=== PATIENT | male | born 1950 | race Caucasian/White ===

== ENCOUNTER 2016-11-21 09:27 | Outpatient (CLI) | payer MEDICARE, OTHER | END 2016-11-21 09:28 | disposition home or self-care (01) | DX: E78.2 Mixed hyperlipidemia (principal); D68.52 Prothrombin gene mutation; E11.65 Type 2 diabetes mellitus with hyperglycemia; Z79.899 Other long term (current) drug therapy; E03.9 Hypothyroidism, unspecified; Z79.01 Long term (current) use of anticoagulants ==

== ENCOUNTER 2016-12-11 15:20 | Outpatient (CLI) | payer MEDICARE, OTHER | END 2016-12-11 15:21 | disposition home or self-care (01) | LOC: LAB 15:20 | PROVIDERS: ATTEND Internal Medicine | DX: Z79.01 Long term (current) use of anticoagulants (principal); D68.52 Prothrombin gene mutation | CPT/HCPCS: 85610 ==

== ENCOUNTER 2017-01-18 09:57 | Outpatient (CLI) | payer MEDICARE, OTHER | END 2017-01-18 09:58 | disposition home or self-care (01) | LOC: LAB 09:57 | PROVIDERS: ATTEND Internal Medicine | DX: Z79.01 Long term (current) use of anticoagulants (principal) | CPT/HCPCS: 85610 ==

== ENCOUNTER 2017-01-30 15:14 | Outpatient (CLI) | payer MEDICARE, OTHER | END 2017-01-30 15:15 | disposition home or self-care (01) | DX: R05 Cough (principal) ==

== ENCOUNTER 2017-01-31 09:00 | Outpatient (CLI) | payer MEDICARE, OTHER ==
--- NOTE | 2017-01-31 10:05 | XRAY Report ---
TWO-VIEW CHEST: 01/31/2017 CLINICAL INDICATION: Persistent cough, decreased breath sounds. FINDINGS: Frontal and lateral views of the chest demonstrate a normal cardiac silhouette. A left myers bclavian two-lead pacemaker is in place. The lungs are clear. No effusion or pneumothorax is presen t. IMPRESSION: NORMAL CHEST. JOB #: [id number] EXT JOB #:[id number]
== END 2017-01-31 09:01 | disposition home or self-care (01) ==
LOC: DI 09:00
PROVIDERS: ATTEND Nurse Practitioner Primary Care
DX: R05 Cough (principal); R07.82 Intercostal pain; R53.83 Other fatigue; R06.89 Other abnormalities of breathing
CPT/HCPCS: 71020

== ENCOUNTER 2017-02-21 15:33 | Outpatient (CLI) | payer MEDICARE, OTHER | END 2017-02-21 15:34 | disposition home or self-care (01) | LOC: LAB 15:33 | PROVIDERS: ATTEND Internal Medicine | DX: Z53.9 Procedure and treatment not carried out, unspecified reason (principal) | CPT/HCPCS: 85610 ==

== ENCOUNTER 2017-03-02 14:48 | Outpatient (CLI) | payer MEDICARE, OTHER | END 2017-03-02 14:49 | disposition home or self-care (01) | LOC: LAB 14:48 | PROVIDERS: ATTEND Internal Medicine | DX: Z79.01 Long term (current) use of anticoagulants (principal) | CPT/HCPCS: 85610 ==

== ENCOUNTER 2017-06-06 15:04 | Outpatient (CLI) | payer MEDICARE, OTHER | END 2017-06-06 15:05 | disposition home or self-care (01) | LOC: LAB 15:04 | PROVIDERS: ATTEND Internal Medicine | DX: Z79.01 Long term (current) use of anticoagulants (principal); D68.52 Prothrombin gene mutation | CPT/HCPCS: 85610 ==

== ENCOUNTER 2017-06-22 11:19 | Outpatient (CLI) | payer MEDICARE, OTHER ==
[2017-06-22 12:15] LABS: INR 4.8 (0.8-1.2)
== END 2017-06-22 11:20 | disposition home or self-care (01) ==
LOC: LAB 11:19
PROVIDERS: ATTEND Internal Medicine
DX: Z79.01 Long term (current) use of anticoagulants (principal); D68.52 Prothrombin gene mutation
CPT/HCPCS: 36415; 85610

== ENCOUNTER 2017-07-20 11:39 | Outpatient (CLI) | payer MEDICARE, OTHER | END 2017-07-20 11:40 | disposition home or self-care (01) | LOC: LAB 11:39 | PROVIDERS: ATTEND Internal Medicine | DX: Z79.01 Long term (current) use of anticoagulants (principal); D68.52 Prothrombin gene mutation | CPT/HCPCS: 85610 ==

== ENCOUNTER 2017-08-23 10:22 | Outpatient (CLI) | payer MEDICARE, OTHER | END 2017-08-23 10:23 | disposition home or self-care (01) | LOC: LAB 10:22 | PROVIDERS: ATTEND Internal Medicine | DX: Z79.01 Long term (current) use of anticoagulants (principal); D68.52 Prothrombin gene mutation | CPT/HCPCS: 85610 ==

== ENCOUNTER 2017-09-11 08:49 | Outpatient (CLI) | payer MEDICARE, OTHER | END 2017-09-11 08:50 | disposition home or self-care (01) | LOC: LAB 08:49 | PROVIDERS: ATTEND Internal Medicine | DX: D68.52 Prothrombin gene mutation (principal); Z79.01 Long term (current) use of anticoagulants | CPT/HCPCS: 85610 ==

== ENCOUNTER 2017-10-04 13:49 | Outpatient (CLI) | payer MEDICARE, OTHER | END 2017-10-04 13:50 | disposition home or self-care (01) | LOC: LAB 13:49 | PROVIDERS: ATTEND Internal Medicine | DX: Z79.01 Long term (current) use of anticoagulants (principal); D68.52 Prothrombin gene mutation | CPT/HCPCS: 85610 ==

== ENCOUNTER 2017-11-01 15:10 | Outpatient (CLI) | payer MEDICARE, OTHER | END 2017-11-01 15:11 | disposition home or self-care (01) | LOC: LAB 15:10 | PROVIDERS: ATTEND Internal Medicine | DX: Z79.01 Long term (current) use of anticoagulants (principal); D68.52 Prothrombin gene mutation | CPT/HCPCS: 85610 ==

== ENCOUNTER 2017-12-07 10:03 | Outpatient (CLI) | payer MEDICARE, OTHER | END 2017-12-07 10:04 | disposition home or self-care (01) | LOC: LAB 10:03 | PROVIDERS: ATTEND Internal Medicine | DX: Z79.01 Long term (current) use of anticoagulants (principal); D68.52 Prothrombin gene mutation | CPT/HCPCS: 85610 ==

== ENCOUNTER 2017-12-21 08:37 | Outpatient (CLI) | payer MEDICARE, OTHER | END 2017-12-21 08:38 | disposition home or self-care (01) | LOC: LAB 08:37 | PROVIDERS: ATTEND Internal Medicine | DX: D68.52 Prothrombin gene mutation (principal); Z79.01 Long term (current) use of anticoagulants | CPT/HCPCS: 85610 ==

== ENCOUNTER 2018-01-25 12:13 | Outpatient (CLI) | payer MEDICARE, OTHER | END 2018-01-25 12:14 | disposition home or self-care (01) | LOC: LAB 12:13 | PROVIDERS: ATTEND Internal Medicine | DX: Z79.01 Long term (current) use of anticoagulants (principal); D68.52 Prothrombin gene mutation | CPT/HCPCS: 85610 ==

== ENCOUNTER 2018-03-04 11:08 | Outpatient (CLI) | payer MEDICARE, OTHER | END 2018-03-04 11:09 | disposition home or self-care (01) | LOC: LAB 11:08 | PROVIDERS: ATTEND Internal Medicine | DX: Z79.01 Long term (current) use of anticoagulants (principal); D68.52 Prothrombin gene mutation | CPT/HCPCS: 85610 ==

== ENCOUNTER 2018-03-15 10:49 | Outpatient (CLI) | payer MEDICARE, OTHER | END 2018-03-15 10:50 | disposition home or self-care (01) | LOC: LAB 10:49 | PROVIDERS: ATTEND Internal Medicine | DX: Z79.01 Long term (current) use of anticoagulants (principal); D68.52 Prothrombin gene mutation | CPT/HCPCS: 85610 ==

== ENCOUNTER 2018-03-27 13:09 | Outpatient (CLI) | payer MEDICARE, OTHER ==
[2018-03-27 15:15] LABS: BASOPHILS # (AUTO) 0.1 10^3/uL (0.0-0.1); EOSINOPHILS # (AUTO) 0.3 10^3/uL (0.0-0.7); EOSINOPHILS % (AUTO) 4.3 %; HGB - HEMOGLOBIN 13.8 g/dL (14.0-18.0); LYMPHOCYTES # (AUTO) 1.6 10^3/uL (1.5-3.5); LYMPHOCYTES % (AUTO) 19.9 %; MEAN CORPUSCULAR HEMOGLOBIN 29.9 pg (27.0-31.0); MEAN CORPUSCULAR HGB CONC 34.2 g/dL (32.0-36.0); MEAN CORPUSCULAR VOLUME 87.5 fL (80.0-94.0); MEAN PLATELET VOLUME 7.5 fL (7.4-11.4); MONOCYTES # (AUTO) 0.7 10^3/uL (0.0-1.0); MONOCYTES % (AUTO) 9.2 %; NEUTROPHILS # (AUTO) 5.3 10^3/uL (1.5-6.6); NEUTROPHILS % (AUTO) 65.6 %; PLT - PLATELET COUNT 200 10^3/uL (130-450); RED BLOOD COUNT 4.62 10^6/uL (4.70-6.10)
[2018-03-27 15:23] LABS: ALBUMIN 4.4 g/dL (3.2-5.5); ALBUMIN/GLOBULIN RATIO 1.5 (1.0-2.2); ALKALINE PHOSPHATASE 66 IU/L (42-121); ALT ALANINE AMINOTRANSFERASE 18 IU/L (10-60); AST ASPARTATE AMINOTRANSFERASE 20 IU/L (10-42); BILIRUBIN,TOTAL 0.5 mg/dL (0.2-1.0); BUN - BLOOD UREA NITROGEN 12 mg/dL (6-20); CARBON DIOXIDE - CO2 25 mmol/L (21-32); CHLORIDE 103 mmol/L (101-111); CHOL/HDL RATIO 2.4 (<5.0); CHOLESTEROL 134 mg/dL; CREATININE 1.3 mg/dL (0.6-1.2); GFR - MDRD 55 (>89); GLUCOSE 109 mg/dL (70-100); HDL CHOLESTEROL 55 mg/dL; INR 2.1 (0.8-1.2); LDL CHOLESTEROL,CALCULATED 42 mg/dL; LDL/HDL RATIO 0.8 (<3.6); PT - PROTHROMBIN TIME 23.2 secs (9.9-12.6); SODIUM 135 mmol/L (135-145); TOTAL PROTEIN 7.4 g/dL (6.7-8.2); VLDL CHOLESTEROL 37 mg/dL
[2018-03-27 15:24] LABS: HB2 TOTAL 14.9 g/dL; HEMOGLOBIN A1C 0.59 g/dL; HEMOGLOBIN A1C % 5.8 % (4.6-6.2)
--- NOTE | 2018-03-28 12:00 | XRAY Report ---
Reason: HEAD NECK CANCER Procedure Date: 03/27/2018 Accession Number: [id number] / [id number] Procedure: XR - Chest 2 View X-Ray CPT Code: 45481 FULL RESULT: EXAM: CHEST RADIOGRAPHY EXAM DATE: 03/27/2018 03:09 PM. CLINICAL HISTORY: History of throat cancer. Long exposure to secondhand smoke. Coughing. COMPARISON: CHEST 2 VIEW PA/LAT 01/31/2017. TECHNIQUE: 2 views. FINDINGS: Lungs/Pleura: No focal opacities evident. No pleural effusion. No pneumothorax. Normal volumes. Mediastinum: Heart and mediastinal contours are unremarkable. Other: There is a left subclavian pacemaker device with the tips at the right atrium and right ventricle apex. There is moderate degenerative change about the shoulder bilaterally. Mild multilevel degenerative change within the spine. IMPRESSION: Stable appearance of the chest without acute cardiopulmonary abnormality. RADIA
== END 2018-03-27 13:10 | disposition home or self-care (01) ==
LOC: LAB 13:09 → DI 13:10
PROVIDERS: ATTEND Internal Medicine
DX: C76.0 Malignant neoplasm of head, face and neck (principal); I25.10 Atherosclerotic heart disease of native coronary artery without angina pectoris; Z79.01 Long term (current) use of anticoagulants; E03.9 Hypothyroidism, unspecified; D68.51 Activated protein C resistance; E11.9 Type 2 diabetes mellitus without complications; Z12.5 Encounter for screening for malignant neoplasm of prostate; E78.5 Hyperlipidemia, unspecified; I10 Essential (primary) hypertension; D68.2 Hereditary deficiency of other clotting factors; Z00.8 Encounter for other general examination
CPT/HCPCS: 36415; 71046; 80053; 80061; 83036; 84443; 85025; 85610; G0103; 83721; 84153

== ENCOUNTER 2018-04-11 09:37 | Outpatient (CLI) | payer MEDICARE, OTHER | END 2018-04-11 09:38 | disposition home or self-care (01) | LOC: LAB 09:37 | PROVIDERS: ATTEND Internal Medicine | DX: Z79.01 Long term (current) use of anticoagulants (principal); D68.52 Prothrombin gene mutation | CPT/HCPCS: 85610 ==

== ENCOUNTER 2018-05-09 09:28 | Outpatient (CLI) | payer MEDICARE, OTHER | END 2018-05-09 09:29 | disposition home or self-care (01) | LOC: LAB 09:28 | PROVIDERS: ATTEND Internal Medicine | DX: Z79.01 Long term (current) use of anticoagulants (principal); D68.52 Prothrombin gene mutation | CPT/HCPCS: 85610 ==

== ENCOUNTER 2018-05-22 15:06 | Outpatient (CLI) | payer MEDICARE, OTHER ==
--- NOTE | 2018-05-23 09:18 | Ultrasound Report ---
Reason: ATHEROSCLEROTIC CARDIOVASCULAR DISEASE Procedure Date: 05/22/2018 Accession Number: [id number] / [id number] Procedure: US - Carotid Doppler Complete CPT Code: FULL RESULT: EXAM: BILATERAL CAROTID AND VERTEBRAL ARTERY DUPLEX DOPPLER ULTRASOUND: EXAM DATE: 05/22/2018 04:34 PM CLINICAL HISTORY: Atherosclerotic cardiovascular disease. History of bilateral carotid artery stents. COMPARISON: None. TECHNIQUE: Grayscale imaging, color Doppler, and duplex spectral Doppler were used to evaluate the carotid and vertebral arteries bilaterally. Static images were obtained. FINDINGS: Vascular stent is seen in the left carotid bulb region. Stent on the right side is not as well delineated separately from the underlying mild to moderate atherosclerotic plaque. Overall, there is no significant elevation of the velocities or ratios to suggest significant stenosis. The left external carotid artery is noted to be occluded. Normal antegrade flow is present in bilateral vertebral arteries. VELOCITIES (cm/sec): VELOCITIES: Right CCA mid: PSV 78.42 cm/sec CCA dist: PSV 75.62 cm/sec ICA prox: PSV 95.39 cm/sec, EDV 31.20 cm/sec ICA mid: PSV 68.99 cm/sec, EDV 31.20 cm/sec ICA dist: PSV 88.18 cm/sec, EDV 28.79 cm/sec ECA: PSV 116.39 cm/sec Vert: PSV 82.78 cm/sec ICA/CCA: 1.21 Left CCA mid: PSV 76.78 cm/sec CCA dist: PSV 67.78 cm/sec ICA prox: PSV 58.73 cm/sec, EDV 16.37 cm/sec ICA mid: PSV 43.80 cm/sec, EDV 18.29 cm/sec ICA dist: PSV 62.43 cm/sec, EDV 20.16 cm/sec ECA: Occluded Vert: PSV 42.14 cm/sec ICA/CCA: 0.81 ICA diameter stenosis: Right: <50% by velocity and <70% by NASCET criteria. Left: <50% by velocity and <70% by NASCET criteria. IMPRESSION: 1. Mild to moderate bilateral carotid artery plaquing. Diffusely patent carotid artery stents are seen in place. 2. In the right carotid artery there are no elevated carotid artery velocities to suggest hemodynamically significant stenosis. 3. In the left carotid artery there are no elevated carotid artery velocities to suggest hemodynamically significant stenosis. 4. Normal antegrade flow is present in bilateral vertebral arteries. General Recommendations: Stenosis =50% ICA - Follow-up ultrasound 6-12 months Stenosis <50% ICA - High Risk Patient with plaque - Follow-up ultrasound 1-2 years Normal Study but High Risk Patient - Follow-up ultrasound 3-5 years Management recommendations and diagnostic criteria are based on current IAC endorsed standards in Carotid Artery Stenosis: Grayscale and Doppler Ultrasound Diagnosis. Validated velocity measurements with angiographic measurements and velocity criteria are extrapolated from diameter data as defined by the Society of Radiologists in Ultrasound Consensus Conference Radiology 2003; 229;340-346. RADIA
== END 2018-05-22 15:07 | disposition home or self-care (01) ==
LOC: DI 15:06
PROVIDERS: ATTEND Internal Medicine
DX: I65.23 Occlusion and stenosis of bilateral carotid arteries (principal); I25.10 Atherosclerotic heart disease of native coronary artery without angina pectoris
CPT/HCPCS: 93880

== ENCOUNTER 2018-06-11 15:26 | Outpatient (CLI) | payer MEDICARE, OTHER | END 2018-06-11 15:27 | disposition home or self-care (01) | LOC: LAB 15:26 | PROVIDERS: ATTEND Internal Medicine | DX: Z79.01 Long term (current) use of anticoagulants (principal); D68.52 Prothrombin gene mutation | CPT/HCPCS: 85610 ==

== ENCOUNTER 2018-09-18 11:24 | Outpatient (CLI) | payer MEDICARE, OTHER | END 2018-09-18 11:25 | disposition home or self-care (01) | LOC: LAB 11:24 | PROVIDERS: ATTEND Internal Medicine | DX: D68.52 Prothrombin gene mutation (principal); E03.9 Hypothyroidism, unspecified; Z79.01 Long term (current) use of anticoagulants | CPT/HCPCS: 36415; 84443; 85610 ==

== ENCOUNTER 2018-10-14 08:17 | Day surgery (SDC) | payer MEDICARE, OTHER ==
[2018-10-14] MEDS ORDERED: LACTATED RINGERS 1,000 ML IV ONE (08:56)
[2018-10-14] MEDS ORDERED: fentaNYL 250 MCG/5 ML VIAL IVP ONE (09:11)
[2018-10-14] MEDS ORDERED: MIDAZOLAM 2 MG/2 ML VIAL IVP ONE (09:11)
[2018-10-14 10:19] VITALS: BP 114/88
== END 2018-10-14 08:18 | disposition home or self-care (01) ==
LOC: SDS 08:17
PROVIDERS: ATTEND Surgery
PROC: 0DJD8ZZ Inspection of Lower Intestinal Tract, Via Natural or Artificial Opening Endoscopic (ICD-10-PCS; principal; 2018-10-14 09:00)
DX: Z12.11 Encounter for screening for malignant neoplasm of colon (principal); K64.8 Other hemorrhoids; I25.2 Old myocardial infarction; I10 Essential (primary) hypertension; Z95.0 Presence of cardiac pacemaker; Z95.5 Presence of coronary angioplasty implant and graft
CPT/HCPCS: 85610; G0121; J3010; J7120

== ENCOUNTER 2018-10-16 13:06 | Outpatient (CLI) | payer MEDICARE, OTHER ==
[2018-10-16 13:42] LABS: ALBUMIN 4.1 g/dL (3.2-5.5); ALBUMIN/GLOBULIN RATIO 1.4 (1.0-2.2); ALKALINE PHOSPHATASE 80 IU/L (42-121); ALT ALANINE AMINOTRANSFERASE 33 IU/L (10-60); AST ASPARTATE AMINOTRANSFERASE 37 IU/L (10-42); BILIRUBIN,TOTAL 0.6 mg/dL (0.2-1.0); BUN - BLOOD UREA NITROGEN 8 mg/dL (6-20); CALCIUM 8.9 mg/dL (8.5-10.3); CARBON DIOXIDE - CO2 27 mmol/L (21-32); CHLORIDE 99 mmol/L (101-111); CHOL/HDL RATIO 1.9 (<5.0); CHOLESTEROL 126 mg/dL; CREATININE 1.1 mg/dL (0.6-1.2); GFR - MDRD 67 (>89); GLUCOSE 105 mg/dL (70-100); HDL CHOLESTEROL 65 mg/dL; LDL CHOLESTEROL,CALCULATED 41 mg/dL; LDL/HDL RATIO 0.6 (<3.6); SODIUM 135 mmol/L (135-145); VLDL CHOLESTEROL 20 mg/dL
[2018-10-16 13:47] LABS: HB2 TOTAL 15.5 g/dL; HEMOGLOBIN A1C 0.66 g/dL
== END 2018-10-16 13:07 | disposition home or self-care (01) ==
LOC: LAB 13:06
PROVIDERS: ATTEND Internal Medicine
DX: D68.2 Hereditary deficiency of other clotting factors (principal); E11.9 Type 2 diabetes mellitus without complications; E03.9 Hypothyroidism, unspecified; I10 Essential (primary) hypertension; E78.5 Hyperlipidemia, unspecified
CPT/HCPCS: 36415; 80053; 80061; 83036; 83721; 84443; 85610

== ENCOUNTER 2018-10-18 09:33 | Outpatient (CLI) | payer MEDICARE, OTHER | END 2018-10-18 09:34 | disposition home or self-care (01) | LOC: LAB 09:33 | PROVIDERS: ATTEND Internal Medicine | DX: D68.2 Hereditary deficiency of other clotting factors (principal); Z79.01 Long term (current) use of anticoagulants | CPT/HCPCS: 85610 ==

== ENCOUNTER 2018-10-21 12:29 | Outpatient (CLI) | payer MEDICARE, OTHER | END 2018-10-21 12:30 | disposition home or self-care (01) | LOC: LAB 12:29 | PROVIDERS: ATTEND Internal Medicine | DX: D68.2 Hereditary deficiency of other clotting factors (principal); Z79.01 Long term (current) use of anticoagulants | CPT/HCPCS: 85610 ==

== ENCOUNTER 2018-10-28 13:22 | Outpatient (CLI) | payer MEDICARE, OTHER | END 2018-10-28 13:23 | disposition home or self-care (01) | LOC: LAB 13:22 | PROVIDERS: ATTEND Internal Medicine | DX: D68.2 Hereditary deficiency of other clotting factors (principal); Z79.01 Long term (current) use of anticoagulants | CPT/HCPCS: 85610 ==

== ENCOUNTER 2018-11-05 05:10 | Outpatient (CLI) | payer MEDICARE, OTHER ==
--- NOTE | 2018-11-05 06:44 | Ultrasound Report ---
Reason: VISION CHANGES Procedure Date: 11/05/2018 Accession Number: [id number] / [id number] Procedure: US - Carotid Doppler Complete CPT Code: FULL RESULT: EXAM: BILATERAL CAROTID AND VERTEBRAL ARTERY DUPLEX DOPPLER ULTRASOUND: EXAM DATE: 11/05/2018 06:10 AM CLINICAL HISTORY: Vision changes. COMPARISON: CAROTID DOPPLER COMPLETE 05/22/2018 3:53 PM. TECHNIQUE: Grayscale imaging, color Doppler, and duplex spectral Doppler were used to evaluate the carotid and vertebral arteries bilaterally. Static images were obtained. FINDINGS: Mild calcified plaquing bilaterally. History of previous ICA stents, which remain patent. Occlusion of the left external carotid artery is again noted, with collateral reconstitution. Normal antegrade flow is present in bilateral vertebral arteries. VELOCITIES (cm/sec): Right CCA mid: PSV 96 cm/sec CCA dist: PSV 96 cm/sec ICA prox: PSV 78 cm/sec, EDV 13 cm/sec ICA mid: PSV 66 cm/sec, EDV 13 cm/sec ICA dist: PSV 66 cm/sec, EDV 27 cm/sec ECA: PSV 109 cm/sec Vert: PSV 32 cm/sec ICA/CCA: 0.81 Left CCA mid: PSV 81 cm/sec CCA dist: PSV 73 cm/sec ICA prox: PSV 51 cm/sec, EDV 21 cm/sec ICA mid: PSV 65 cm/sec, EDV 29 cm/sec ICA dist: PSV 103 cm/sec, EDV 39 cm/sec ECA: PSV 74 cm/sec after reconstitution. Vert: PSV 44 cm/sec ICA/CCA: 1.27 ICA diameter stenosis: Right: <50% by velocity and <70% by NASCET criteria. Left: <50% by velocity and <70% by NASCET criteria. IMPRESSION: 1. Mild calcified bilateral carotid artery plaquing. 2. In the right carotid artery there are no elevated carotid artery velocities to suggest hemodynamically significant stenosis. 3. In the left carotid artery there are no elevated carotid artery velocities to suggest hemodynamically significant stenosis. Reconstitution of the occluded left external carotid artery distally. 4. Normal antegrade flow is present in bilateral vertebral arteries. General Recommendations: Stenosis =50% ICA - Follow-up ultrasound 6-12 months Stenosis <50% ICA - High Risk Patient with plaque - Follow-up ultrasound 1-2 years Normal Study but High Risk Patient - Follow-up ultrasound 3-5 years Management recommendations and diagnostic criteria are based on current IAC endorsed standards in Carotid Artery Stenosis: Grayscale and Doppler Ultrasound Diagnosis. Validated velocity measurements with angiographic measurements and velocity criteria are extrapolated from diameter data as defined by the Society of Radiologists in Ultrasound Consensus Conference Radiology 2003; 229;340-346. RADIA
== END 2018-11-05 05:11 | disposition home or self-care (01) ==
LOC: DI 05:10
PROVIDERS: ATTEND Internal Medicine
DX: I65.22 Occlusion and stenosis of left carotid artery (principal); D68.2 Hereditary deficiency of other clotting factors; Z79.01 Long term (current) use of anticoagulants
CPT/HCPCS: 85610; 93880

== ENCOUNTER 2018-11-05 05:19 | Outpatient (CLI) | payer MEDICARE, OTHER | END 2018-11-05 05:20 | disposition home or self-care (01) | LOC: LAB 05:19 | PROVIDERS: ATTEND Internal Medicine | DX: D68.2 Hereditary deficiency of other clotting factors (principal); Z79.01 Long term (current) use of anticoagulants | CPT/HCPCS: 85610 ==

== ENCOUNTER 2018-11-08 11:30 | Outpatient (CLI) | payer MEDICARE, OTHER | END 2018-11-08 11:31 | disposition home or self-care (01) | LOC: LAB 11:30 | PROVIDERS: ATTEND Internal Medicine | DX: D68.2 Hereditary deficiency of other clotting factors (principal); Z79.01 Long term (current) use of anticoagulants | CPT/HCPCS: 85610 ==

== ENCOUNTER 2018-11-13 09:10 | Outpatient (CLI) | payer MEDICARE, OTHER | END 2018-11-13 09:11 | disposition home or self-care (01) | LOC: LAB 09:10 | PROVIDERS: ATTEND Internal Medicine | DX: D68.2 Hereditary deficiency of other clotting factors (principal); Z79.01 Long term (current) use of anticoagulants | CPT/HCPCS: 85610 ==

== ENCOUNTER 2018-12-10 10:46 | Outpatient (CLI) | payer MEDICARE, OTHER | END 2018-12-10 10:47 | disposition home or self-care (01) | LOC: LAB 10:46 | PROVIDERS: ATTEND Internal Medicine | DX: D68.2 Hereditary deficiency of other clotting factors (principal); Z79.01 Long term (current) use of anticoagulants | CPT/HCPCS: 85610 ==

== ENCOUNTER 2018-12-17 14:40 | Outpatient (CLI) | payer MEDICARE, OTHER | END 2018-12-17 14:41 | disposition home or self-care (01) | LOC: LAB 14:40 | PROVIDERS: ATTEND Internal Medicine | DX: Z53.9 Procedure and treatment not carried out, unspecified reason (principal) ==

== ENCOUNTER 2018-12-18 08:00 | Outpatient (CLI) | payer MEDICARE, OTHER | END 2018-12-18 23:59 | disposition home or self-care (01) | LOC: LAB 08:00 | PROVIDERS: ATTEND Internal Medicine | DX: D68.2 Hereditary deficiency of other clotting factors (principal); Z79.01 Long term (current) use of anticoagulants | CPT/HCPCS: 85610 ==

== ENCOUNTER 2018-12-26 10:58 | Outpatient (CLI) | payer MEDICARE, OTHER | END 2018-12-26 10:59 | disposition home or self-care (01) | LOC: LAB 10:58 | PROVIDERS: ATTEND Internal Medicine | DX: D68.2 Hereditary deficiency of other clotting factors (principal); Z79.01 Long term (current) use of anticoagulants | CPT/HCPCS: 85610 ==

== ENCOUNTER 2019-01-02 13:23 | Outpatient (CLI) | payer MEDICARE, OTHER | END 2019-01-02 23:59 | disposition home or self-care (01) | LOC: LAB 13:23 | PROVIDERS: ATTEND Internal Medicine | DX: Z79.01 Long term (current) use of anticoagulants (principal); D68.2 Hereditary deficiency of other clotting factors | CPT/HCPCS: 85610 ==

== ENCOUNTER 2019-01-10 10:37 | Outpatient (CLI) | payer MEDICARE, OTHER | END 2019-01-10 10:38 | disposition home or self-care (01) | LOC: LAB 10:37 | PROVIDERS: ATTEND Internal Medicine | DX: D68.2 Hereditary deficiency of other clotting factors (principal); Z79.01 Long term (current) use of anticoagulants | CPT/HCPCS: 85610 ==

== ENCOUNTER 2019-01-17 13:30 | Outpatient (CLI) | payer MEDICARE, OTHER | END 2019-01-17 13:31 | disposition home or self-care (01) | LOC: LAB 13:30 | PROVIDERS: ATTEND Internal Medicine | DX: D68.2 Hereditary deficiency of other clotting factors (principal); Z79.01 Long term (current) use of anticoagulants | CPT/HCPCS: 85610 ==

== ENCOUNTER 2019-02-04 11:13 | Outpatient (CLI) | payer MEDICARE, OTHER | END 2019-02-04 11:14 | disposition home or self-care (01) | LOC: LAB 11:13 | PROVIDERS: ATTEND Internal Medicine | DX: D68.2 Hereditary deficiency of other clotting factors (principal); Z79.01 Long term (current) use of anticoagulants | CPT/HCPCS: 85610 ==

== ENCOUNTER 2019-02-18 13:49 | Outpatient (CLI) | payer MEDICARE, OTHER | END 2019-02-18 13:50 | disposition home or self-care (01) | LOC: LAB 13:49 | PROVIDERS: ATTEND Internal Medicine | DX: D68.2 Hereditary deficiency of other clotting factors (principal); Z79.01 Long term (current) use of anticoagulants | CPT/HCPCS: 85610 ==

== ENCOUNTER 2019-03-05 15:00 | Outpatient (CLI) | payer MEDICARE, OTHER | END 2019-03-05 15:01 | disposition home or self-care (01) | LOC: LAB 15:00 | PROVIDERS: ATTEND Internal Medicine | DX: D68.2 Hereditary deficiency of other clotting factors (principal); Z79.01 Long term (current) use of anticoagulants | CPT/HCPCS: 85610 ==

== ENCOUNTER 2019-03-08 11:11 | Outpatient (CLI) | payer MEDICARE, OTHER | END 2019-03-08 11:12 | disposition home or self-care (01) | LOC: LAB 11:11 | PROVIDERS: ATTEND Internal Medicine | DX: D68.2 Hereditary deficiency of other clotting factors (principal); Z79.01 Long term (current) use of anticoagulants | CPT/HCPCS: 85610 ==

== ENCOUNTER 2019-03-19 15:14 | Outpatient (CLI) | payer MEDICARE, OTHER | END 2019-03-19 15:15 | disposition home or self-care (01) | LOC: LAB 15:14 | PROVIDERS: ATTEND Internal Medicine | DX: D68.2 Hereditary deficiency of other clotting factors (principal); Z79.01 Long term (current) use of anticoagulants | CPT/HCPCS: 85610 ==

== ENCOUNTER 2019-03-23 10:30 | Emergency (ER) | payer MEDICARE, OTHER ==
--- NOTE | 2019-03-23 10:46 | ED Physician Documentation ---
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 It improved some after he rested but it continued to some degree and he came here for evaluation. He had been noticing some dyspnea on exertion and some slight chest heaviness with activity similarly over the last couple of weeks. However he has not had any at rest or with very light activity.) Timing - details: Gradual onset Quality: Pressure, Tightness. No: Sharp, Stabbing Location: Substernal, Right chest Radiation: Back. No: Jaw, Neck Improved by: Rest Worsened by: Exertion. No: Movement, Palpation Associated symptoms: Shortness of air, Feeling faint / dizzy. No: Nausea, Vom iting, Palpitations, Cough Similar symptoms before: Diagnosis (He does have history of coronary disease and had 5 stents placed back in . He been doing well since that time. [place] and he moved here within the last couple of years. 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 He had not noticed any exertionally related symptoms until this past couple of weeks. It was more noticeable with heavy exertion today.) Recently seen: Not recently seen Review of Systems Constitutional: denies: Fever, Chills Nose: denies: Rhinorrhea / runny nose, Congestion Throat: denies: Sore throat Respiratory: denies: Cough GI: denies: Abdominal Pain, Nausea, Vomiting Musculoskeletal: denies: Extremity swelling Neurologic: denies: Near syncope, Syncope PD PAST MEDICAL HISTORY - Past Medical History Cardiovascular: Hypertension, Coronary artery disease, Deep vein thrombosis, Pulmonary embolism, Angina, [place], Atrial fibrillation, Other Respiratory: Other Neuro: None Endocrine/Autoimmune: None, Type 2 diabetes GI: GERD, Hiatal hernia : None HEENT: Chronic vision loss, Other Psych: None Musculoskeletal: Other Derm: None - Past Surgical History General: Colonoscopy, EGD Ortho: Knee replacement Cardiovascular: Coronary stent, Pacemaker, Angioplasty, Other HEENT: Tonsil/Adenoidectomy - Present Medications Home Medications: Ambulatory Orders Medication Instructions Recorded Confirmed Cholecalciferol (Vitamin D3) 1,000 unit PO DAILY 04/22/18 04/22/18 [Vitamin D3] Citalopram Hydrobromide 40 mg PO DAILY 04/22/18 04/22/18 [Citalopram HBr] Clopidogrel [Plavix] 1 tab ORAL DAILY 04/22/18 04/22/18 Cyanocobalamin (Vitamin B-12) 1,000 mcg PO DAILY 04/22/18 04/22/18 [Vitamin B-12] Iron,Carbonyl/Vit C/Fos [Chewable 1 each PO DAILY 04/22/18 04/22/18 Iron 30 mg Tablet] Levothyroxine Sodium [Unithroid] 200 mcg PO DAILY 04/22/18 04/22/18 Melatonin 10 mg PO DAILY 04/22/18 04/22/18 Pantoprazole [Protonix] 40 mg PO DAILY 04/22/18 04/22/18 Rosuvastatin Calcium [Crestor] 40 mg PO DAILY 04/22/18 04/22/18 Ubidecarenone [Co Q-10] 200 mg PO DAILY 04/22/18 04/22/18 Warfarin Sodium [Coumadin] 10 mg PO UD 04/22/18 04/22/18 amLODIPine [Norvasc] 10 mg PO DAILY 04/22/18 04/22/18 metFORMIN [Glucophage] 500 mg PO BIDWM 04/22/18 04/22/18 raNITIdine [Zantac] 150 mg PO DAILY 04/22/18 04/22/18 Nitroglycerin 0.4 mg SL ONCE PRN #1 bottle 03/23/19 - Allergies Allergies/Adverse Reactions: Allergies Allergy/AdvReac Type Severity Reaction Status Date / Time glucosamine Allergy Rash Verified 03/23/19 10:39 PD ED PE NORMAL - Vitals Vital signs reviewed: Yes - General General: Alert and oriented X 3, No acute distress, Well developed/nourished - HEENT HEENT: Moist mucous membranes, Pharynx benign - Neck Neck: Supple, no meningeal sign, No adenopathy, No JVD - Cardiac Cardiac: RRR, No murmur - Respiratory Respiratory: Clear bilaterally - Abdomen Abdomen: Soft, Non tender - Back Back: No CVA TTP - Derm Derm: Normal color, Warm and dry - Extremities Extremities: No tenderness to palpate, Normal ROM s pain, No edema, No calf tenderness / cord - Neuro Neuro: Alert and oriented X 3, No motor deficit, Normal speech Eye Opening: Spontaneous Motor: Obeys Commands Verbal: Oriented GCS Score: 15 Results - Vitals Vitals: Vital Signs - 24 hr 03/23/19 03/23/19 03/23/19 10:36 11:09 11:30 Temperature 36.4 C L Heart Rate 78 73 70 Respiratory 19 17 24 Rate Blood Pressure 159/85 H 128/81 H 136/79 H O2 Saturation 98 96 96 03/23/19 03/23/19 12:00 13:03 Temperature Heart Rate 69 76 Respiratory 13 18 Rate Blood Pressure 126/80 117/74 O2 Saturation 96 98 Oxygen O2 Source Room air - EKG (time done) 10:38 Rate: Rate (enter#) (73) Rhythm: Paced (with ventricular response) Ischemia: No: ST elevation c/w repol Compare to prior EKG: Old EKG unavailable - Labs Labs: Laboratory Tests 03/23/19 03/23/19 03/23/19 10:51 10:51 10:51 WBC 8.7 RBC 4.81 Hgb 14.1 Hct 43.2 MCV 89.8 MCH 29.3 MCHC 32.6 RDW 14.8 Plt Count 201 MPV 9.4 Neut # (Auto) 6.5 Lymph # (Auto) 1.1 L [place] # (Auto) 0.7 Eos # (Auto) 0.3 Baso # (Auto) 0.1 Absolute Nucleated RBC 0.00 Nucleated RBC % 0.0 PT 17.2 H INR 1.5 H Sodium 139 Potassium 4.2 Chloride 105 Carbon Dioxide 25 Anion Gap 9.0 BUN 11 Creatinine 1.4 H Estimated GFR (MDRD) 50 L Glucose 122 H Calcium 9.0 Magnesium Total Bilirubin 0.9 AST 18 ALT 14 Alkaline Phosphatase 71 Troponin I High Sens B-Natriuretic Peptide Total Protein 7.5 Albumin 4.3 Globulin 3.2 Albumin/Globulin Ratio 1.3 Lipase 19 L 03/23/19 03/23/19 03/23/19 10:51 10:51 10:51 WBC RBC Hgb Hct MCV MCH MCHC RDW Plt Count MPV Neut # (Auto) Lymph # (Auto) [place] # (Auto) Eos # (Auto) Baso # (Auto) Absolute Nucleated RBC Nucleated RBC % PT INR Sodium Potassium Chloride Carbon Dioxide Anion Gap BUN Creatinine Estimated GFR (MDRD) Glucose Calcium Magnesium 2.2 Total Bilirubin AST ALT Alkaline Phosphatase Troponin I High Sens 18.2 B-Natriuretic Peptide 100 Total Protein Albumin Globulin Albumin/Globulin Ratio Lipase - Rads (name of study) chest xray Radiology: Prelim report reviewed (no acute process), See rad report PD MEDICAL DECISION MAKING - ED course Complexity details: reviewed results (The patient had exertional chest pain and dyspnea. It continued a bit with rest but is gone now with the nitroglycerin. His BNP and troponin are negative. 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 He will need further evaluation in a timely fashion but likely does not need hospitalization acutely. I did talk with Dr. Kent while who is on for [place] and he took the patient's name and number and will try to expedite follow-up with the patient outpatient this coming week.), re-evaluated patient (improved with NTG x 1. ), considered differential, d/w patient Departure - Departure Disposition: Home, Self Care Clinical Impression: Exertional chest pain Condition: Stable Record reviewed to determine appropriate education?: Yes Instructions: ED Chest Pain Angina Stable Follow-Up: Nona Dhaliwal MD [Physician No Access] - Prescriptions: Nitroglycerin 0.4 mg SL ONCE PRN #1 bottle PRN Reason: Angina Comments: Avoid heavy exertion for a few days and see how you feel. Continue usual medications. Stay well-hydrated. Nitroglycerin sublingually if needed for exertional chest pain or pressure if rest alone is not helping. Return if significant symptoms at rest or despite the nitro. At this point is no signs of heart failure or heart attack this morning. You would need to have some stress test or other heart test to fully exclude angina or diminished heart blood flow to the heart. Follow-up with cardiology for further heart testing. I gave you the name of Dr. Kent well as just a reference for the [facility] and cardiology group. You can follow-up with anyone of the group there. If you are feeling well without any symptoms with light exertion then resume your usual activities and see how you feel with that. Discharge Date/Time: 03/23/19 13:07
[2019-03-23 11:05] LABS: BASOPHILS # (AUTO) 0.1 10^3/uL (0.0-0.1); BASOPHILS % (AUTO) 0.8 %; EOSINOPHILS # (AUTO) 0.3 10^3/uL (0.0-0.7); HGB - HEMOGLOBIN 14.1 g/dL (14.0-18.0); LYMPHOCYTES # (AUTO) 1.1 10^3/uL (1.5-3.5); LYMPHOCYTES % (AUTO) 13.1 %; MEAN CORPUSCULAR HEMOGLOBIN 29.3 pg (27.0-31.0); MEAN CORPUSCULAR HGB CONC 32.6 g/dL (32.0-36.0); MEAN CORPUSCULAR VOLUME 89.8 fL (80.0-94.0); MEAN PLATELET VOLUME 9.4 fL (7.4-11.4); MONOCYTES # (AUTO) 0.7 10^3/uL (0.0-1.0); MONOCYTES % (AUTO) 8.5 %; NEUTROPHILS # (AUTO) 6.5 10^3/uL (1.5-6.6); NEUTROPHILS % (AUTO) 74.3 %; PLT - PLATELET COUNT 201 10^3/uL (130-450); RED BLOOD COUNT 4.81 10^6/uL (4.70-6.10); RED CELL DISTRIBUTION WIDTH 14.8 % (12.0-15.0); WHITE BLOOD COUNT 8.7 x10^3/uL (4.8-10.8)
[2019-03-23] MEDS ORDERED: NITROGLYCERIN SL 0.4 MG TABLET SL STA (11:14)
[2019-03-23 11:21] LABS: ALBUMIN 4.3 g/dL (3.2-5.5); ALBUMIN/GLOBULIN RATIO 1.3 (1.0-2.2); BILIRUBIN,TOTAL 0.9 mg/dL (0.2-1.0); CREATININE 1.4 mg/dL (0.6-1.2); TOTAL PROTEIN 7.5 g/dL (6.7-8.2)
[2019-03-23 11:26] LABS: INR 1.5 (0.8-1.2); PT - PROTHROMBIN TIME 17.2 secs (9.9-12.6)
--- NOTE | 2019-03-23 11:31 | XRAY Report ---
Reason: CP Procedure Date: 03/23/2019 Accession Number: [id number] / [id number] Procedure: XR - Chest 1 View X-Ray CPT Code: 18500 FULL RESULT: EXAM: CHEST RADIOGRAPHY EXAM DATE: 03/23/2019 11:00 AM. CLINICAL HISTORY: Chest pain COMPARISON: CHEST 2 VIEW 03/27/2018 3:02 PM. TECHNIQUE: 1 view. FINDINGS: Lungs/Pleura: No focal pneumonia or edema. No pleural effusion or pneumothorax. Mediastinum: Heart size not enlarged. No mediastinal shift. Other: Stable left pacemaker. IMPRESSION: No acute process seen in the chest. RADIA
[2019-03-23 13:03] VITALS: BP 117/74
== END 2019-03-23 13:07 | disposition home or self-care (01) ==
LOC: ED 10:30
DX: R07.9 Chest pain, unspecified (principal); I10 Essential (primary) hypertension; E11.9 Type 2 diabetes mellitus without complications; I25.10 Atherosclerotic heart disease of native coronary artery without angina pectoris; Z95.5 Presence of coronary angioplasty implant and graft; Z79.84 Long term (current) use of oral hypoglycemic drugs; Z79.01 Long term (current) use of anticoagulants
CPT/HCPCS: 36415; 71045; 80053; 83690; 83735; 83880; 84484; 85025; 85610; 93005; 99284; A9270

== ENCOUNTER 2019-05-20 13:05 | Outpatient (CLI) | payer MEDICARE, OTHER | END 2019-05-20 13:06 | disposition home or self-care (01) | LOC: LAB 13:05 | DX: Z53.9 Procedure and treatment not carried out, unspecified reason (principal) ==

== ENCOUNTER 2019-05-21 08:34 | Outpatient (CLI) | payer MEDICARE, OTHER ==
[2019-05-21 09:35] LABS: T4 (THYROXINE) 11.66 ug/dL (6.09-12.23)
[2019-05-21 09:37] LABS: THYROID STIMULATING HORMONE < 0.08 uIU/mL (0.34-5.60)
[2019-05-21 09:48] LABS: FOLATE 4.81 ng/mL (5.90 - >24.8)
[2019-05-21 10:00] LABS: PSA TOTAL 0.833 ng/mL (0.000-2.000)
[2019-05-21 10:04] LABS: FREE T3 3.01 pg/mL (2.5-3.9)
[2019-05-22 06:51] LABS: ESTRADIOL 42 pg/mL (< OR = 39)
== END 2019-05-21 08:35 | disposition home or self-care (01) ==
LOC: LAB 08:34
DX: R53.83 Other fatigue (principal); R68.82 Decreased libido; G47.9 Sleep disorder, unspecified
CPT/HCPCS: 36415; 81599; 82607; 82626; 82670; 82746; 84140; 84153; 84402; 84403; 84436; 84443; 84481; 86376; 86800

== ENCOUNTER 2019-07-31 15:35 | Outpatient (CLI) | payer MEDICARE, OTHER ==
[2019-07-31 16:39] LABS: T4 (THYROXINE) 8.3 ug/dL (6.09-12.23)
[2019-07-31 16:41] LABS: THYROID STIMULATING HORMONE 0.4 uIU/mL (0.34-5.60)
[2019-07-31 17:05] LABS: PSA TOTAL 1.56 ng/mL (0.000-2.000)
[2019-07-31 17:10] LABS: FREE T3 2.7 pg/mL (2.5-3.9)
[2019-08-01 05:54] LABS: ESTRADIOL 96 pg/mL (< OR = 39)
== END 2019-07-31 15:36 | disposition home or self-care (01) ==
LOC: LAB 15:35
PROVIDERS: ATTEND Nurse Practitioner Family
DX: G47.9 Sleep disorder, unspecified (principal); R53.83 Other fatigue; R68.82 Decreased libido
CPT/HCPCS: 36415; 81599; 82607; 82626; 82627; 82670; 82746; 84140; 84153; 84402; 84403; 84436; 84443; 84481; 86376; 86800